=== PATIENT | male | born 1955 | race Caucasian/White ===

== ENCOUNTER 2019-06-11 07:22 | Day surgery (SDC) | payer MEDICARE ==
[~2019-06-11 07:22] MED LIST: RINGERS SOLUTION,LACTATED 1,000 ML IV ONE
[2019-06-11] MEDS ORDERED: LIDOCAINE 2% MDV (20MG/ML) 20ML VIAL IV ONE (07:23)
[2019-06-11] MEDS ORDERED: FENTANYL PF 100MCG/2ML VIAL IV ONE (07:23)
[2019-06-11] MEDS ORDERED: PROPOFOL 10 MG/ML VIAL IV ONE (07:23)
[2019-06-11] MEDS ORDERED: MIDAZOLAM HCL 2MG/2ML VIAL IV ONE (07:23)
[2019-06-11] MEDS ORDERED: RINGERS SOLUTION,LACTATED 1,000 ML IV ONE (07:45)
[2019-06-11] MEDS ORDERED: LIDOCAINE 1% W/EPI 1:200,000 MPF 30ML SQ ONE (08:42)
[2019-06-11] MEDS ORDERED: DEXAMETHASONE PRESERVATIVE FREE 10MG/ML VIAL SQ ONE (08:43)
[2019-06-11] MEDS ORDERED: BUPIVACAINE 0.5% (5MG/ML) PF 30ML VIAL SQ ONE (08:43)
[2019-06-11] MEDS ORDERED: BUPIVACAINE 0.5% W/EPI MPF 30 ML VIAL SQ ONE (08:43)
--- NOTE | 2019-06-11 09:46 | Operative Note - [place] ---
DATE OF SURGERY: 06/11/2019 PREOPERATIVE DIAGNOSIS: LUMBAR SPONDYLOSIS WITHOUT MYELOPATHY, ICD-10 CODE M47.816. OPERATION: FLUOROSCOPICALLY GUIDED INFILTRATIONAL BLOCK BILATERAL LUMBAR FACETS L3-L4, L4- L5, AND L5-S1. SURGEON: Chidi Negrete D.O. ANESTHESIA: IV sedation. ANESTHESIA PROVIDER: Fantasma Anguiano CRNA INDICATION: This patient presents with primary back pain. Examination showed tenderness lumbar spine. Range of motion does cause pain to low back with extension. Diagnostic studies showed diffuse multiple level spondylitic change. PROCEDURE: Intravenous line, vital sign monitoring, IV sedation, prepped and draped, sterile technique. Under imaging the lumbar facet levels in the area of pain were identified and marked at L3-L4, L4-L5, and L5-S1 bilaterally, each one of these points on the skin were infiltrated with a 22-gauge 3-1/2 inch needle into the facet and 1 ml of 0.5% Marcaine with Dexamethasone was injected and this was repeated bilaterally. The area was cleaned, topical antibiotic, sterile dressing applied. Will monitor and evaluate. JOB NUMBER: [id number] [facility]
== END 2019-06-11 09:27 | disposition home or self-care (01) ==
LOC: SUR 07:22
PROVIDERS: ATTEND Pain Medicine Interventional Pain Medicine
DX: M47.816 Spondylosis without myelopathy or radiculopathy, lumbar region (principal); I10 Essential (primary) hypertension; M10.9 Gout, unspecified; K21.9 Gastro-esophageal reflux disease without esophagitis
CPT/HCPCS: 64493; 64494; 64495; 01992; J1100; J3010; J7120